=== PATIENT | male | born 1965 | race Caucasian/White ===

== ENCOUNTER 2017-12-03 21:01 | Emergency (ER) | payer OTHER, MEDICAID ==
[2017-12-03 21:35] LABS: PLATELET COUNT 299 10^3/uL (150-400)
[2017-12-03] MEDS ORDERED: LIDOCAINE 2% VISCOUS 15 ML UDCUP PO ONE (21:48)
[2017-12-03] MEDS ORDERED: MAG HYDROX/AL HYDROX/SIMETH 30 ML UDCUP PO ONE (21:48)
[2017-12-03] MEDS ORDERED: HYOSCYAMINE SULFATE 0.125 MG TAB PO ONE (21:48)
--- NOTE | 2017-12-03 21:48 | EDPHY ---
General Time Seen by Provider: 12/03/17 21:02 Narrative: CHIEF COMPLAINT: chest pain HISTORY OF PRESENT ILLNESS: Patient presents by EMS and is seen at time arrival with complaints of chest pain. Chest pain is retrosternal. It started approximately 2 hr ago while swimming. This was after having mowed the lawn and had some lunch. He described as a burning sensation. It is constant duration. It has improved. Did not radiate. No diaphoresis, nausea or vomiting. He describes it as similar to previous episodes of chest pain but cannot quantify this. Patient resides at a half[place]way with a history of autism and to rest and has difficulty providing specific details of his medical history. His sister will be here shortly. No other associated complaints or modifying factors. REVIEW OF SYSTEMS: 10 systems were reviewed and negative with the exception of the elements mentioned in the history of present illness. PCP: Dr. Liza Nelson SPECIALISTS: None PAST MEDICAL HISTORY: Reflux, autism spectrum, Tourette syndrome PAST SURGICAL HISTORY: No surgical history SOCIAL HISTORY: Never smoker. Lives in [place]. FAMILY HISTORY: Positive for coronary artery disease. Father had a non fatal [place] in his 50s EXAMINATION: General Appearance: Alert, no distress Head: normocephalic, atraumatic Eyes: Pupils equal and round, no conjunctival pallor or injection ENT, Mouth: Mucous membranes moist Neck: Normal inspection, supple, non-tender Respiratory: Lungs are clear to auscultation Cardiovascular: Regular rate and rhythm. No murmur Gastrointestinal: Abdomen is soft and nontender Back: non-tender, no bony abnormalities Neurological: A&O, nonfocal, normal gait Skin: Warm and dry, no rash Extremities: Nontender, no pedal edema Psychiatric: Mood and affect normal DIFFERENTIAL DIAGNOSES: Including but not limited to ACS, PE, pneumonia, esophagitis, gastritis, pancreatitis, aneurysm, reflux MDM: 9:05 p.m. Retrosternal chest pain of 2 hr duration. Possibly exertional. No diaphoresis. No previous coronary artery disease. Heart score is 1 with pending troponin. Laboratory studies, EKG currently being obtained. Chest x- ray will be ordered with placed on a school bus monitor. He is perc negative. 9:40 p.m. Troponin negative. CBC and chemistry unremarkable. Chest x-ray is clear. EKG has been reviewed by Dr. Delgado. Sinus rhythm with right bundle-branch block. No previous EKG available for comparison. I have now visited with his sister who is his guardian and at bedside. She reports he does have history of acid reflux and she thinks this may be related. We discussed the shared decision pathway, and they have elected for a repeat troponin at 2 hours. I do feel this is reasonable at this time. I have ordered a GI cocktail and we will continue to monitor. 11:15 p.m. Repeat, 2 hr troponin is negative at 0.0. Repeat EKG is currently being obtained. I re-evaluated the patient and his sister. He says that the GI cocktail completely alleviated his pain. We discussed the [place] [employer] shared decision pathway. I did offer admission to the hospital and they have declined. We discussed risks, benefits and alternatives and the patient and his sister would like to go home. I do feel this is reasonable, and I do feel that they have combined decision making to assume this risk. We discussed the need for follow-up with primary care physician soon for further testing and likely cardiology referral. We discussed ED precautions for any return of chest pain, exertional chest pain, radiating chest pain. I recommended [id number] Mylanta for his acid reflux and to contact his physician to discuss prescriptive medications for this. He is comfortable this plan and would like to go home. Discharged in stable condition and his sister will drive him home. EKG interpretation: Dr. Delgado Sinus rhythm. Right bundle branch block. No previous for comparison SUPERVISION: Patient was independently examined, but I discussed the case with my secondary supervising physician Dr. Delgado CONSULTATION: None - History Smoking Status: Never smoked - Objective Vital Signs: Initial Vital Signs Temperature (C) 98.1 F 12/03/17 21:03 Heart Rate 89 12/03/17 21:03 Respiratory Rate 20 12/03/17 21:03 Blood Pressure 156/91 H 12/03/17 21:03 O2 Sat (%) 96 12/03/17 21:03 O2 Delivery Mode Room Air Allergies/Adverse Reactions: No Known Allergies Allergy (Verified 12/03/17 21:06) Home Medications: Medication Instructions Recorded Cholecalciferol (Vitamin D3) 1,000 unit PO DAILY 05/23/11 [Vitamin D3] Haloperidol [Haldol] 1 mg PO TID 05/23/11 Levothyroxine [Synthroid] 50 mcg PO DAILY 05/23/11 clonIDINE [Catapres] 0.1 mg PO BID 05/23/11 Vitamin D3 12/03/17 Laboratory Results: Laboratory Results 12/03/17 21:11 12/03/17 21:11 Medications Given: Discontinued Medications Al Hydroxide/Mg Hydroxide (Maalox Susp) 30 ml PO ONCE ONE Stop: 12/03/17 21:49 Last Admin: 12/03/17 21:52 Dose: 30 ml Hyoscyamine Sulfate (Levsin, Hyomax-Sl) 0.25 mg PO ONCE ONE Stop: 12/03/17 21:49 Last Admin: 12/03/17 21:52 Dose: 0.25 mg Lidocaine (Lidocaine 2% Viscous) 15 ml PO ONCE ONE Stop: 12/03/17 21:49 Last Admin: 12/03/17 21:52 Dose: 15 ml Point of Care Test Results: Chemistry 12/03/17 12/03/17 23:03 21:14 POC Troponin I 0.00 ng/mL ng/mL 0.00 ng/mL ng/mL (0.00-0.08) (0.00-0.08) Departure - Departure Disposition: Home, Routine, Self-Care Clinical Impression: Chest pain Qualifiers: Chest pain type: unspecified Qualified Code(s): R07.9 - Chest pain, unspecified GERD (gastroesophageal reflux disease) Qualifiers: Esophagitis presence: without esophagitis Qualified Code(s): K21.9 - Gastro- esophageal reflux disease without esophagitis Condition: Good Instructions: Chest Pain (ED), Gastroesophageal Reflux Disease (ED), Gastroesophageal Reflux Disease (DC) Additional Instructions: 1. Contact her primary care physician tomorrow morning for outpatient care and further cardiac testing 2. Recommend [id number] Mylanta, as directed on the bottle for acid reflux. Discussed further medications with her physician 3. Return to emergency department for any exertional pain, worsening pain, radiating pain, sweating, nausea or vomiting Referrals: Liza Nelson MD [[facility] [place] - As per Instructions Doroteo Patiño MD [Medical Doctor] - As per Instructions
[2017-12-03 23:43] VITALS: BP 127/80
--- NOTE | 2017-12-04 06:44 | CPEKG ---
Test Reason : OPEN Blood Pressure : / mmHG Vent. Rate : 090 BPM Atrial Rate : 091 BPM P-R Int : 158 ms QRS Dur : 183 ms QT Int : 421 ms P-R-T Axes : 067 058 -01 degrees QTc Int : 515 ms Sinus rhythm Right bundle branch block Confirmed by Geoff Oneal ([id number]) on 12/04/2017 6:44:10 AM Referred By: Confirmed By:Geoff Oneal
--- NOTE | 2017-12-04 06:44 | CPEKG ---
Test Reason : OPEN Blood Pressure : / mmHG Vent. Rate : 076 BPM Atrial Rate : 076 BPM P-R Int : 151 ms QRS Dur : 189 ms QT Int : 467 ms P-R-T Axes : 059 053 -15 degrees QTc Int : 526 ms Sinus rhythm Right bundle branch block Confirmed by Geoff Oneal ([id number]) on 12/04/2017 6:44:16 AM Referred By: Confirmed By:Geoff Oneal
== END 2017-12-03 23:42 | disposition home or self-care (01) ==
LOC: EDUNIT#
DX: R07.9 Chest pain, unspecified (principal); K21.9 Gastro-esophageal reflux disease without esophagitis
CPT/HCPCS: 84484-PO